=== PATIENT | female | born 1995 | race Hispanic/Latino ===

== ENCOUNTER 2020-12-11 15:37 | Emergency (ER) | payer OTHER, SELFPAY ==
[2020-12-11 17:30] LABS: Urine Blood Negative (Negative); Urine Glucose Negative (Negative); Urine Protein Negative (Negative); Urine Specific Gravity 1.025 (1.005-1.030)
[2020-12-11 17:54] LABS: Urine Bacteria >50 /HPF (<20); Urine RBC NONE SEEN /HPF (NONE SEEN)
[2020-12-11 17:55] LABS: Basophils % 0.7 % (0-1.3); Hematocrit 40.6 % (36.0-45.0); Lymphocytes % 26.4 % (15.3-44.8); MPV 9.2 fL (7.6-11.3); RBC Red Blood Cell Count 4.47 M/uL (3.86-4.86)
[2020-12-11] MEDS ORDERED: NA CHLORIDE 0.9% 1,000 ML ONE (18:03)
[2020-12-11] MEDS ORDERED: KETOROLAC 30 MG/ML INJ ONE (18:03)
[2020-12-11 18:07] LABS: ALT/SGPT 30 U/L (12-78); AST/SGOT 15 U/L (15-37); Albumin 4.1 g/dL (3.4-5.0); Alkaline Phosphatase 50 U/L (45-117); BUN Blood Urea Nitrogen 15 mg/dL (7-18); Bicarbonate 29 mmol/L (21-32); Bilirubin Direct 0.1 mg/dL (0-0.2); Bilirubin Total 0.3 mg/dL (0.2-1.0); Glucose Level 88 mg/dL (74-106); Lipase 151 U/L (73-393); Potassium 4.1 mmol/L (3.5-5.1); Protein, Total 7.4 g/dL (6.4-8.2); Sodium Level 140 mmol/L (136-145)
[2020-12-11 18:30] LABS: Urine Specific Gravity/Preg 1.025 (1.005-1.030)
--- NOTE | 2020-12-11 19:04 | RAD REPORT ---
EXAM DESCRIPTION: CT - Abdomen Pelvis W Contrast - 12/11/2020 6:43 pm CLINICAL HISTORY: Abdominal pain COMPARISON: none. TECHNIQUE: Computed axial tomography of the abdomen pelvis was obtained. 100 cc Isovue-300 was admin istered intravenously. Oral contrast was not requested which limits evaluation of bowel. All CT scans are performed using dose optimization technique as appropriate and may include automated exposure control or mA/KV adjustment according to patient size. FINDINGS: The liver, spleen, pancreas, adrenal and kidneys appear unremarkable. There is no evidence of diverticulitis. Normal appendix 3.5 centimeter cystic mass abuts the posterior aspect of the uterus. No significant free fluid Small umbilical hernia IMPRESSION: 3.5 centimeter cystic mass abuts the posterior aspect of the uterus. No significant free fluid. Most likely this represents a right ovarian cyst .
--- NOTE | 2020-12-11 20:18 | RAD REPORT ---
EXAM DESCRIPTION: US - Pelvis Complete - 12/11/2020 8:09 pm CLINICAL HISTORY: Pelvic pain COMPARISON: December 11, 2020 cat scan FINDINGS: The uterus measures 8 x 4 x 5 centimeters. The endometrial stripe measures 9 millimeters. A fibroid is not seen. Left ovary is normal in size and echotexture. 3.3 centimeter right ovarian cyst. Blood flow to the right ovary is present. No significant free fluid. The right and left adnexa unremarkable IMPRESSION: 3.3 centimeter right ovarian cyst without significant free fluid
--- NOTE | 2020-12-11 20:38 | EDPHYS ---
Physician Documentation [facility] Name: Brianna Lopez Age: 25 yrs Sex: Female : 1995 Arrival Date: 12/11/2020 Time: 16:00 Bed 20 Private MD: ED Physician Michael Ríos HPI: 12/11 17:30 This 25 yrs old Female presents to ER via Ambulatory with complaints of cp Abdominal Pain. 17:30 The patient presents with abdominal pain right lower quadrant. cp 17:30 Onset: The symptoms/episode began/occurred 4 day(s) ago. cp 17:30 The symptoms radiate to right back. Associated signs and symptoms: Pertinent negatives: cp anorexia, chest pain, constipation, dysuria, fever, vaginal discharge, vomiting, vaginal bleeding. The symptoms are described as constant. Modifying factors: the symptoms are aggravated by palpation. 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 - Social history:: Smoking status: Reported history of juuling and/or vaping. ROS: 17:35 Abdomen/GI: Positive for abdominal pain, diarrhea, of the right lower quadrant, cp Negative for vomiting, constipation. 17:35 Constitutional: Negative for body aches, chills, fever, poor PO intake. cp 17:35 Cardiovascular: Negative for chest pain, palpitations. 17:35 Respiratory: Negative for cough, shortness of breath, wheezing. 17:35 Back: Positive for radiated pain, of the right low back. 17:35 : Negative for urinary symptoms, vaginal bleeding, vaginal discharge. 17:35 All other systems are negative. Exam: 17:40 Constitutional: The patient appears in no acute distress, alert, awake, non-toxic, well cp developed, well nourished. 17:40 Head/Face: Normocephalic, atraumatic. cp 17:40 Eyes: Periorbital structures: appear normal, Conjunctiva: normal, no exudate, no injection, Sclera: no appreciated abnormality, Lids and lashes: appear normal, bilaterally. 17:40 ENT: External ear(s): are unremarkable, Nose: is normal, Mouth: Lips: moist, Oral mucosa: moist, Posterior pharynx: Airway: no evidence of obstruction, patent. 17:40 Chest/axilla: Inspection: normal, Palpation: is normal, no crepitus, no tenderness. 17:40 Cardiovascular: Rate: normal, Rhythm: regular. 17:40 Respiratory: the patient does not display signs of respiratory distress, Respirations: normal, no use of accessory muscles, labored breathing, is not present, Breath sounds: are clear throughout, no decreased breath sounds, no stridor, no wheezing. 17:40 Abdomen/GI: Inspection: abdomen appears normal, Bowel sounds: active, all quadrants, Palpation: soft, in all quadrants, moderate abdominal tenderness, in the right lower quadrant, rebound tenderness, is not appreciated, voluntary guarding, is elicited in the right lower quadrant. 17:40 Back: pain, that is mild, of the right low back, ROM is normal. 19:00 : Pelvic Exam: The exam is refused by the patient/guardian. The risks and cp consequences are understood by the patient, Sexual behavior: the patient is sexually active. Vital Signs: 16:05 BP 130 / 92; Pulse 88; Resp 16; Temp 98.2; Pulse Ox 98% ; Weight 64.86 kg; Height 5 ft. vg1 5 in. (165.10 cm); Pain 9/10; 17:23 BP 105 / 66; Pulse 72; Resp 16; Pulse Ox 100% ; es2 16:05 Body Mass Index 23.80 (64.86 kg, 165.10 cm) vg1 MDM: 17:04 Patient medically screened. cp 20:30 Data reviewed: vital signs, nurses notes, lab test result(s), radiologic studies, CT cp scan, ultrasound. 20:30 Differential diagnosis: appendicitis, Ectopic , Ovarian Torsion, Pelvic cp Inflammatory Disease, Pyelonephritis, Tubal Ovarian Abcess, Ureterolithiasis, urinary tract infection. Counseling: I had a detailed discussion with the patient and/or guardian regarding: the historical points, exam findings, and any diagnostic results supporting the discharge/admit diagnosis, lab results, radiology results, the need for outpatient follow up, a family practitioner, to return to the emergency department if symptoms worsen or persist or if there are any questions or concerns that arise at home. Response to treatment: the patient's symptoms have markedly improved after treatment, and as a result, I will discharge patient. 20:35 Special discussion: Based on the patient's Hx, exam, and Dx evaluation, there is no cp indication for emergent surgery or inpatient Tx. It is understood by the patient/guardian that if the Sx's persist or worsen they need to return immediately for re-evaluation. 20:35 ED course: VSS. Pain improved with meds. Will discharge to home for continued cp monitoring. 12/11 17:23 Order name: Basic Metabolic Panel; Complete Time: 18:30 cp 12/11 17:23 Order name: CBC with Diff; Complete Time: 18:30 cp 12/11 17:23 Order name: Hepatic Function; Complete Time: 18:30 cp 12/11 17:23 Order name: Lipase; Complete Time: 18:30 cp 12/11 17:23 Order name: Urine Microscopic Only; Complete Time: 18:30 cp 12/11 17:30 Order name: Urine --Ancillary (enter results); Complete Time: 19:11 mt 12/11 17:23 Order name: IV Saline Lock; Complete Time: 17:35 cp 12/11 17:23 Order name: CT Abd/Pelvis - IV Contrast Only; Complete Time: 19:11 cp 12/11 17:31 Order name: Urine Dipstick-Ancillary; Complete Time: 18:30 EDMS 12/11 17:55 Order name: Urine Culture EDIA 12/11 20:07 Order name: Pelvis Complete; Complete Time: 20:18 EDIA 12/11 17:23 Order name: Labs collected and sent; Complete Time: 17:35 cp 12/11 17:23 Order name: Urine Dipstick-Ancillary (obtain specimen); Complete Time: 17:35 cp 12/11 17:23 Order name: Urine Test (obtain specimen); Complete Time: 17:35 cp Administered Medications: 17:40 Drug: Ketorolac 15 mg Route: IVP; Site: right antecubital; es2 17:40 Drug: NS 0.9% 1000 ml Route: IV; Rate: 1 bolus; Site: right antecubital; es2 Disposition: 20:45 Chart complete. 12/12 07:55 Co-signature as Attending Physician, Michael Ríos MD I agree with the assessment and rn plan of care. Attestation: The patient's history, exam findings, diagnostics, and a summary of any interventions or procedures was reviewed in detail with Rafael KRISHNAN. Disposition Summary: 12/11/20 20:37 Discharge Ordered Location: Home cp Problem: new cp Symptoms: have improved cp Condition: Stable cp Diagnosis - Other ovarian cysts - Right cp Followup: cp - With: Private Physician - When: 10 - 14 days - Reason: Recheck today's complaints Discharge Instructions: - Discharge Summary Sheet cp - Ovarian Cyst cp Forms: - Medication Reconciliation Form cp - Thank You Letter cp - Antibiotic Education cp - Prescription Opioid Use cp Prescriptions: - Naprosyn 500 mg Oral Tablet - take 1 tablet by ORAL route 2 times per day take with food; 20 tablet; Refills: cp 0, Product Selection Permitted Signatures: Dispatcher [employer] EDIA Michael Ríos MD MD rn Page, Corey, PA PA cp Sweta Lopez RN RN vg1 Camila Norton RN RN es2 Corrections: (The following items were deleted from the chart) 12/11 20:07 19:20 Transvaginal Study (Probe)+[email or web address] ordered. [facility] 12/12 21:26 12/11 17:40 : Pelvic Exam: The exam is refused by the patient/guardian. The risks and cp consequences are understood by the patient, Sexual behavior: the patient is sexually active, cp
--- NOTE | 2020-12-11 20:38 | ER ---
Nurse's Notes [facility] Name: Brianna Lopez Age: 25 yrs Sex: Female : 1995 Arrival Date: 12/11/2020 Time: 16:00 Bed 20 Private MD: Diagnosis: Other ovarian cysts-Right Presentation: 12/11 16:05 Chief complaint: Patient states: RLQ pain that began on 12/07/20, pain feels sharp. vg1 States has had nausea and diarrhea as well since Tuesday. States when pressing down on ABD 'it hurts' and when lifts Right leg up. Coronavirus screen: Vaccine status: Patient reports receiving the 2nd dose of the covid vaccine. Ebola Screen: Patient negative for fever greater than or equal to 101.5 degrees Fahrenheit, and additional compatible Ebola Virus Disease symptoms. Initial Sepsis Screen: Does the patient meet any 2 criteria? No. Patient's initial sepsis screen is negative. Does the patient have a suspected source of infection? No. Patient's initial sepsis screen is negative. Risk Assessment: Do you want to hurt yourself or someone else? Patient reports no desire to harm self or others. Onset of symptoms was December 07, 2020. 16:05 Method Of Arrival: Ambulatory vg1 16:05 Acuity: MARGIE 3 vg1 Triage Assessment: 16:08 General: Appears in no apparent distress. comfortable, Behavior is calm, cooperative. vg1 Pain: Complains of pain in right lower quadrant. GI: Abdomen is flat, Reports diarrhea, nausea. 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 - Social history:: Smoking status: Reported history of juuling and/or vaping. Screenin:07 Abuse screen: Denies threats or abuse. Denies injuries from another. Nutritional es2 screening: No deficits noted. Tuberculosis screening: No symptoms or risk factors identified. Fall Risk None identified. Gait- Normal/Bed Rest/Wheelchair (0 pts). Assessment: 17:06 Reassessment: Patient and/or family updated on plan of care and expected duration. Pain es2 level reassessed. Patient is alert, oriented x 3, equal unlabored respirations, skin warm/dry/pink. General: Appears comfortable, well groomed, well developed, well nourished, Behavior is calm, cooperative, appropriate for age. Neuro: Level of Consciousness is awake, alert, obeys commands, Oriented to person, place, time, situation, Appropriate for age Gait is steady, Speech is normal. Cardiovascular: Capillary refill < 3 seconds Patient's skin is warm and dry. Respiratory: Airway is patent Respiratory effort is even, Respiratory pattern is regular. EENT: No signs and/or symptoms were reported regarding the EENT system. Derm: No signs and/or symptoms reported regarding the dermatologic system. Vital Signs: 16:05 BP 130 / 92; Pulse 88; Resp 16; Temp 98.2; Pulse Ox 98% ; Weight 64.86 kg; Height 5 ft. vg1 5 in. (165.10 cm); Pain 9/10; 17:23 BP 105 / 66; Pulse 72; Resp 16; Pulse Ox 100% ; es2 16:05 Body Mass Index 23.80 (64.86 kg, 165.10 cm) vg1 ED Course: 16:00 Patient arrived in ED. vg1 16:08 Triage completed. vg1 16:08 Arm band placed on. vg1 17:03 Rafael Ellis PA is PHCP. cp 17:03 Michael Ríos MD is Attending Physician. cp 17:05 Camila Norton RN is Primary Nurse. es2 17:07 Patient has correct armband on for positive identification. Placed in gown. Bed in low es2 position. Call light in reach. 17:08 No provider procedures requiring assistance completed. es2 17:41 Inserted saline lock: 20 gauge in right antecubital area, using aseptic technique. es2 Blood collected. 18:43 CT Abd/Pelvis - IV Contrast Only In Process Unspecified. EDMS 20:09 Pelvis Complete In Process Unspecified. EDMS 21:30 IV discontinued, intact, bleeding controlled, No redness/swelling at site. bs2 Administered Medications: 17:40 Drug: Ketorolac 15 mg Route: IVP; Site: right antecubital; es2 17:40 Drug: NS 0.9% 1000 ml Route: IV; Rate: 1 bolus; Site: right antecubital; es2 Outcome: 20:37 Discharge ordered by . cp 21:29 Discharged to home ambulatory. bs2 21:29 Condition: stable 21:29 Discharge instructions given to patient, Instructed on discharge instructions, follow up and referral plans. Demonstrated understanding of instructions, follow-up care. 21:30 Patient left the ED. bs2 Signatures: Dispatcher [employer] EDMS Rafael Ellis PA PA cp Garcia, Victoria, RN RN vg1 Yasmin Norton RN RN bs2 Camila Norton RN RN es2
[2020-12-11 21:35] VITALS: TEMP 98.2
[2020-12-11 21:36] VITALS: BP 105/66; O2SAT 100
== END 2020-12-11 21:30 | disposition home or self-care (01) ==
LOC: ER 15:37
DX: N83.201 Unspecified ovarian cyst, right side (principal)
CPT/HCPCS: 36415; 74177; 76856; 80048; 80076; 81003; 81015; 81025; 83690; 85025; 87086; 87088; 96374; 99284; J7030; Q9967